=== PATIENT | female | born 1945 | race Caucasian/White ===

== ENCOUNTER 2019-11-21 08:14 | Day surgery (SDC) | payer OTHER ==
[2019-11-19 13:17] LABS: Absolute Lymphocytes (CBC) 1.6 K/uL (0.7-4.9); Basophils % 1.2 % (0-1.3); Hematocrit 39.3 % (36.0-45.0); Lymphocytes % 18.9 % (15.3-44.8); MPV 8.1 fL (7.6-11.3)
--- OUTSIDE RECORDS SUMMARY | 2019-11-21 08:30 | XMS REPORT | Continuity of Care Document ---
:1945 Author Organization [facility] t Address [address] [place] [address] Dr. Col[address] [place] [address] Care Team Providers Name Role Phone Alok COLLAZO Primary Care Physician Bj COLLAZO Attending Clinician Yaya HINDS Attending Clinician Unavailable Soledad COLLAZO, M. 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 7-16 Me thodi athy athy 00:00: st associated associated 00 with type with type 2 diabetes 2 diabetes mellitus mellitus Lumbar Lumbar Disease Active [place] radiculopa radiculopa 7-06 Me thodi thy thy 00:00: st 00 Type 2 Type 2 Disease Active [place] diabetes diabetes 7-06 Method i mellitus mellitus 00:00: st without without 00 complicati complicati on, on, without without long-term long-term current current use of use of insulin insulin Obesity Obesity Disease Active [place] (BMI (BMI 09-21 Methodi 30.0-34.9) 30.0-34.9) 00:00: st 00 Aortic Aortic Disease Active [place] aneurysm aneurysm 09-21 Method i without without 00:00: st rupture rupture 00 Allergies, Adverse Reactions, Alerts Allergy Allergy Status Severity Reaction(s) Onset Inactive Treating Comm ents Source Name Type Date Date Clinician Mario Vital Active Rash 2011-03 [place] line ty to 0-01 [facility] adverse 00:00: st reaction 00 s to drug Family History Family Member Diagnosis Comments Start Date Stop Date Source Natural father Diabetes [place] Me thodist Natural father Heart disease [place] Hoahaoism Natural father Hypertension [place] [facility]aoism Natural mother Heart disease [place] [facility]aoism Natural mother Hypertension [place] Ho[facility]aoism Natural mother Migraines [facility] thodist Natural mother Thyroid disease [place] Social History Social Habit Start Date Stop Date Quantity Comments Source History [facility] Meth odist Alcohol Std Drinks History [facility] Meth odist Alcohol Binge Sex Assigned At [facility] ethodist Alcohol intake 2019-09-22 2019-09-22 Lifetime [facility] thodist 00:00:00 00:00:00 non-drinker (finding) History [facility] 2019-09-22 2019-09-22 1 [place] Meth odist Alcohol Frequency 00:00:00 00:00:00 Smoking Status Start Date Stop Date Source Never smoker [place] Methodis t Medications Ordered Filled Start Stop Current Ordering Indication Dosage Frequency Signature Comments Components Source Medication Medication Date Date Medication? Clinician (SIG) Name Name multivitami Yes 1{tbl} QD Take 1 [place] n - tablet by [facility] (THERAGRAN) 11:22: mouth st tablet 22 daily. UBIQUINOL, 2020-0 Yes daily. [place] BULK, MISC 09-21 Methodi 11:22: st 22 C,E,ZINC,CO 2019-0 Yes Take by [place] st[place] PPER -06 mouth Methodi 24-OM3-LUT- 11:22: daily. st SHAYNA ORAL 21 garlic 1 mg 2019- Yes 2{tbl} Take 2 [place] capsule - tablets by Method i 11:22: mouth st 21 daily. vit 2019-0 Yes Take by [place] C/E/Zn/arlyn 7-06 mouth Methodi r/lutein/ze 11:22: daily. st axan 21 (PRESERVISI ON AREDS-2 ORAL) lutein 20 2020-0 Yes Take by [place] mg tablet 7-06 mouth Methodi 11:22: daily. st 21 pumpkin 2020-0 Yes Take by [place] seed/soy 7-06 mouth Methodi germ/Cissus 11:22: daily. st (PUMPKIN 21 SEED-SOYBEA N OIL-CISS ORAL) calcium 2020-0 Yes Take by [place] polycarboph 7-06 mouth Methodi il 11:22: daily. st (FIBER-CAPS 20 , CA POLYCARBOPH IL, ORAL) carvediloL 2020-0 Yes 25mg Q.5D Take 25 mg [place] (COREG) 25 7-06 by mouth 2 Met hodi MG tablet 10:43: (two) st 54 times a day with meals. furosemide 2020-0 Yes 40mg Take 40 mg [place] (LASIX) 40 7-06 by mouth Metho di mg tablet 10:43: daily. st 54 gabapentin 2020-0 Yes 300mg Take 300 [place] (NEURONTIN) 7-06 mg by Methodi 300 mg 10:43: mouth as st capsule 54 needed. rosuvastati 2020-0 Yes 10mg QD Take 10 mg [place] n (CRESTOR) 7-06 by mouth Meth moon 10 mg 10:43: daily. st tablet 54 potassium 2020-0 Yes 20meq Take 20 [place] chloride 7-06 mEq by [facility] (KLOR-CON) 10:43: mouth st 20 mEq 54 once. packet levothyroxi 2016-03 Yes daily. [place] ne 0-04 [facility] (SYNTHROID) 00:00: st 88 mcg 00 tablet losartan 2017- Yes daily. [place] (COZAAR) 919 [facility] 100 MG 00:00: st tablet 00 glimepiride 2017- Yes daily. [place] (AMARYL) 2 9-07 [facility] MG tablet 00:00: st 00 metFORMIN 2017-0 Yes Q.5D 2 (two) [place] (GLUCOPHAGE 8-23 times a Metho di ) 500 mg 00:00: day. st tablet 00 amLODIPine 2015-03 Yes daily. [place] (NORVASC) 5 2-05 Method[facility] mg tablet 00:00: st 00 Vital Signs Vital Name Observation Time Observation Value Comments Source Systolic blood 2019-10-02 09:24:00 155 mm[Hg] Michael Shafer pressure Diastolic blood 2019-10-02 09:24:00 84 mm[Hg] [place] Hoahaoism pressure Heart rate 2019-10-02 09:24:00 50 /min Bud Shafer Body height 2019-09-22 10:43:00 165.1 cm Bud Shafer Body weight 2019-09-22 10:43:00 92.534 kg Bud Shafer BMI 2019-09-22 10:43:00 33.95 kg/m2 Bud Shafer Procedures Procedure Date / Time Performed Performing Clinician Eron dsouza T4, FREE 2019-09-24 09:50:00 Judi Lorenzo Meth odsari THYROID STIMULATING 2019-09-24 09:50:00 Judi Lorenzo HORMONE VITAMIN B1 LEVEL, WHOLE 2019-09-24 09:50:00 Judi Lorenzo BLOOD VITAMIN B12 LEVEL 2019-09-24 09:50:00 Judi Lorenzo Me thodist RHEUMATOID FACTOR 2019-09-24 09:50:00 Judi Lorenzo Sc thodi DOMENIC SCREEN W IFA W REFLEX 2019-09-24 09:50:00 Judi Lorenzo TO TITER COMPREHENSIVE METABOLIC 2019-09-24 09:50:00 Judi Lorenzo PANEL FOLATE LEVEL 2019-09-24 09:50:00 Judi Lorenzo IMMUNOFIXATION, SERUM 2019-09-24 09:50:00 Judi Lorenzo NM SPECT BONE SCAN 2019-09-17 13:08:34 Denny Rowe NM BONE SCAN WHOLE BODY 2019-09-17 12:51:20 Denny Rowe XR LUMBAR SPINE COMPLETE 2019-09-17 11:06:24 Denny Rowe W BENDING MRI THORACIC SPINE WO 2019-09-17 10:48:32 Denny Rowe CONTRAST MRI CERVICAL SPINE WO 2019-09-17 10:37:49 [employer], Denny M. [place] [facility] CONTRAST Plan of Care Planned Activity Planned Date Details Comments Source Future Scheduled 2019-12-18 INFLUENZA VACCINE [place] [facility] Test 00:00:00 [code = INFLUENZA VACCINE] Future Scheduled 2008-10-10 65+ PNEUMOCOCCAL [place] [facility]aoism Test 00:00:00 VACCINE (1 of 2 - PCV13) [code = 65+ PNEUMOCOCCAL VACCINE (1 of 2 - PCV13)] Future Scheduled 1993-10-10 COLONOSCOPY SCREENING [place] [facility]ism Test 00:00:00 [code = COLONOSCOPY SCREENING] Future Scheduled 1993-10-10 SHINGLES VACCINES (#1) [place] [facility] Test 00:00:00 [code = SHINGLES VACCINES (#1)] Future Scheduled 1953-10-10 DIABETIC FOOT EXAM [place] [facility] Test 00:00:00 [code = DIABETIC FOOT EXAM] Future Scheduled 1953-10-10 URINE MICROALBUMIN [place] [facility]ism Test 00:00:00 [code = URINE MICROALBUMIN] Future Scheduled 1943 DIABETIC RETINAL EYE [place] Hoahaoism Test 00:00:00 EXAM [code = DIABETIC RETINAL EYE EXAM] Encounters Start End Encounter Admission Attending Care Care Encounter Source Date/Time Date/Time Type Type Clinicians Facility Department ID 2019-10-02 2019-10-02 [facility] [id number] [place] 00:00:00 00:00:00 JUDI 074 Method i 2019-09-22 2019-09-22 Outpatient [facility] [id number] 1910 [place] 00:00:00 00:00:00 JUDI 611 Method i 2019-09-17 2019-09-17 [facility] [id number] [place] 00:00:00 00:00:00 DENNY 473 Method i 2019-09-17 2019-09-17 [facility] [id number] [place] 00:00:00 00:00:00 DENNY 475 Method i 2019-09-17 2019-09-17 [facility] [id number] [place] 00:00:00 00:00:00 DENNY 471 Method i 2019-09-17 2019-09-17 [facility] [id number] [place] 00:00:00 00:00:00 DENNY 477 Method i 2019-09-17 2019-09-17 [facility] [id number] [place] 00:00:00 00:00:00 DENNY Mills2 Method i 2019-09-17 2019-09-17 Outpatient [facility] [id number] [place] 00:00:00 00:00:00 DENNY 474 Method i 2019-09-17 2019-09-17 Outpatient [facility] [id number] [place] 00:00:00 00:00:00 DENNY Remy Method i 2019-09-15 2019-09-15 Office Susannah [facility] [id number] 14:51:01 15:27:13 Visit [facility] [id number] Surgical [id number] Specialti [id number] [place] Results Test Description Test Time Test Comments Results Result Comments Source Comprehensive metabolic panel 2019-09-28 00:58:00 Test Item Value Reference Range Interpretation Comme nts Glucose (test code = 122 mg/dL 65-99 H Fasting 2345-7) reference inter santo For someone without known diabetes, a glu cose valuebetween 10 0 and 125 mg/dL is consis tent withprediabetes and should be confi rmed with afollow-up test . BUN (test code = 17 mg/dL 10-104-0) Creatinine (test code = 0.76 mg/dL 0.6-0.93 For patients >49 years of 2160-0) age, the refere nce limitfor Creati nine is approximately 1 3% higher for peopleident ified as -Selina n. EGFR Non-Afr. Sammarinese 77 > OR = 60 (test code = 2775) mL/min/1.73m2 EGFR 89 > OR = 60 (test code = 90398-5) mL/min/1.73m2 BUN/creatinine ratio NOT APPLICABLE (calc) (test code = 3097-3) Sodium (test code = 144 mmol/L 374-999 4333-2) Potassium (test code = 3.8 mmol/L 3.5-5.3 2823-3) Chloride (test code = 104 mmol/L 98-110 2074-0) CO2 (test code = 32 mmol/L 20-32 2027-9) Calcium (test code = 9.8 mg/dL 8.6-10.4 56718-4) Protein (test code = 7.0 g/dL 6.1-8.1 2885-2) Albumin, S (test code = 4.3 g/dL 3.6-5.1 1751-7) Globulin, total (test 2.7 1.9- 3.7 g/dL code = 73293-1) (calc) Albumin/globulin ratio 1.6 1.0- 2.5 (test code = 1759-0) (calc) Total bilirubin (test 0.5 mg/dL 0.2-1.2 code = 1975-2) Alkaline phosphatase 54 U/L 37-153 (test code = 6768-6) AST (test code = 22 U/L 10-35 1919-8) ALT (test code = 25 U/L 09-14-6) RAC (test code = RAC) Performing Organization Information: Site ID: JENNIFER Name: [facility] Address: [address] [place] [phone] Director: Valdo Owens Lab Interpretation Abnormal (test code = 95892-2) [place] MethodistVitamin B12 [id number] 00:58:00 Test Item Value Reference Range Interpretation Comments Vitamin B12 (test 494 pg/mL 200-1100 code = 2132-9) RAC (test code = Performing Organization RAC) Information: Site ID: JI [facility]: [facility] Address: [address] [place] [phone] Director: Valdo Owens [place] MethodistFolate [id number] 00:58:00 Test Item Value Reference Range Interpretation Comments Folate (test 21.0 ng/mL code = 2284-8) Refer ence Range Lo w: <3.4 Borderline: 3.4-5.4 Normal: >5.4 RAC (test code Performing = RAC) Organization Information: Site ID: JI Name: [facility] Address: [address] [place] [phone] Director: Valdo Owens [place] MethodistT4, [id number] 00:58:00 Test Item Value Reference Range Interpretation Comments T4, free (test code 1.4 ng/dL 0.8-1.8 = 3024-7) RAC (test code = Performing Organization RAC) Information: Site ID: [facility] Name: [facility] Address: [address] [place] [phone] Director: Valdo Owens [place] MethodistThyroid stimulating [id number] 00:58:00 Test Item Value Reference Range Interpretation Comments TSH (test code = 2.96 0.40- 4.50 mIU/L 3016-3) RAC (test code = Performing Organization RAC) Information: Site ID: [facility] Name: [facility] Address: [address] [place] [phone] Director: Valdo Owens [place] MethodistRheumatoid [id number] 00:58:00 Test Item Value Reference Range Interpretation Comments Rheumatoid factor <14 <14 IU/mL (test code = 95360-5) RAC (test code = RAC) Performing Organization Information: Site ID: [facility] Name: [facility] Address: [address] [place] [phone] Director: Valdo Owens [place] KwabenaistVitamin B1 level, whole [id number] 00:58:00 Test Item Value Reference Interpretation Comments Range Vitamin B1, whole 243 nmol/L 78-185 H Vitamin blood (test code = supplemen tation 74378-0) within 24 hours prior toblood d raw may affect the accuracy of res ults. This test was developed and i ts analytical performance characteristics have been determined by [employer]. It has not been cleared or appr lenin by theFDA. This assay has been validated pursu ant to the CLIA regulations and is used for clinic al purposes. RAC (test code = Performing RAC) Organization Information: Site ID: SLI Name: [facility] Address: [address] [place] [address] Director: Florentino Fu M.D., Ph.D Lab Interpretation Abnormal (test code = 82529-5) [place] MethodistANA SCREEN W IFA W REFLEX TO [id number] 00:58:00 Test Item Value Reference Range Interpretation Comments DOMENIC screen NEGATIVE NEGATIVE DOMENIC IFA is a fi rst line (test code = screen for dete cting 46421-2) thepresence of up to approximately 1 50 autoantibodies invarious autoimmune dise ases. A negative DOMENIC IF A resultsuggests an DOMENIC-associated autoimmune disease is notp resent at this time, but is not definitive. If thereis high clinical s uspicion for Sjogren's syndrome,testin g for anti-SS-A/Ro an tibody should be considered.Anti -Elena-1 antibody should be considered for clinicallysuspe cted inflammatory my opathies. AC-0: Negative International C onsensus on DOMENIC Patterns(https: //doi.org/ 10.1515/ccl-20 18-0052) For additional information, pl ease refer tohttp://educat ion.DraftMix/ faq/VTX871 (This link is b eing provided for informational/e ducational purposes only.) RAC (test Performing code = RAC) Organization Information: Site ID: IG [facility]: [facility] Address: [address] [place] [phone] Director: Dr. Valdo Farrell MethodistImmunofixation, [id number] 00:58:00InterpretationComment: Normal pattern. No monoclonal proteins detected. Ology MediaSHARI II Performing Organization Information: Site ID: IG Name: [facility] Address: [address] [place] [phone] Director: Dr. Valdo Lyon MethodsariMD Spect Bone [id number] 13:48:36Hm Interface, Radiology Results - 09/17/2019 1:51 PM CDTPROCEDURE: NM SPECT BONE SCANINDICATION: Postlaminectomy syndrome. COMPARISON: Same day cervical/thoracic spine MRI and lumbar spine radiographs. TECHNIQUE: The patient was injected with 25 millicuries of neahekrgno-53q-NKY intravenously, followed 3 hours later by whole-body scanning in the anterior and posterior projections. SPECT imaging of the thoracolumbar spine was obtained. FINDINGS: Mild increased uptake L1-2 right facet joint. Physiological renal excretion. Postoperative uptake in the lower lumbar spine. DJD in the shoulders and feet. IMPRESSION: Degenerative and postoperative changes in the lumbar spine, without evidence for hardware complication.[id number] and approved by residential real estate agent/fellow: Alba Meeks, Des Levy MD, personally reviewed the images and resident's/fellow's findings and agree with the final report.Bud ShaferNM Bone Scan Whole [id number] 13:31:14Hm Interface, Radiology Results 09/17/2019 1:34 PM CDTPROCEDURE: NM BONE SCAN WHOLE BODYINDICATION: Postlaminectomy syndrome. COMPARISON: Same day cervical/thoracic spine MRI and lumbar spine radiographs. TECHNIQUE: The patient was injected with 25 millicuries of jmmjoioiox-26q-PNU intravenously, followed 3 hours later by whole-body scanning in the anterior and posterior projections. S PECT imaging of the thoracolumbar spine was obtained. FINDINGS: Mild increased uptake L1-2 right facet joint. Physiological renal excretion. Postoperative uptake in the lower lumbar spine. DJD in the shoulders and feet. IMPRESSION: Degenerative and postoperative changes in the lumbar spine, without evidence for hardware complication.[id number] and approved by residential real estate agent/fellow: Alba Meeks, Des Levy MD, personally reviewed the images and resident's/fellow's findings and agree with the final report.Bud Guido Lumbar Spine Complete W Flex and [id number] 13:15:24Hm Interface, Radiology Results 09/17/2019 1:18 PM CDTEXAMINATION: Lateral neutral, flexion-extension views; AP and oblique radiographs of the lumbar spine in the standing position.CLINICALHISTORY: M96.1 Postlaminectomy syndrome not elsewhere classified, G95.9 Disease of spinal cord unspecified, POST LAMINECTOMY SYNDROMECOMPARISON: NoneFINDINGS:There is anterior fusion at L5-S1 with cage device in place. There is diffuse decreased bone density. There is severe disc space narrowing atL4-5 and L3-4. Endplate overlap obscures vertebral body and disc space height in the upper lumbar and lower thoracic region. There are a few small ventral osteophytes. There are lateral osteophytes more prominent on the right at L1-2; left at L3-4 and right greater than left at L4-5. There is severe left disc space narrowing at L3-4 with mild right lateral listhesis. There is greater left disc space narrowing at L2-3. There is left lateral listhesis at L1-2. There are multilevel ventrolateral osteophytes in the lower thoracic region, possibly with some right lateral bone bridging. There is calcification density in the T11-12 disc. The mid to upper lumbar spine and lower thoracic spine are angled towards the left. There is vacuum density in the L4-5, L3-4 and L1-2 discs, seen best on the oblique views.There are degenerative changes of the sacroiliac joints. Bowel gas obscures detail for laminectomy. There may be laminectomy at the L5 level. There is calcification of the land of the arteries.There is no significant change in alignment with flexion versus extension.IMPRESSION:Degenerative changes in the spine and sacroiliac joint regions.[facility]-[id number] MethodistMRI Thoracic Spine Wo [id number] 12:16:29Hm Interface, Radiology Results 09/17/2019 12:19 PM CDTEXAMINATION: MRI THORACIC SPINE WO CONTRASTCLINICAL HISTORY: M96.1 Postlaminectomy syndrome not elsewhere classified, G95.9 Disease of spinal cord unspecified, POST LAMINECTOMY SYNDROMECOMPARISON: None.TECHNIQUE:Multiplanar MRI imaging without IV Gadolinium was performed.FINDINGS:There is normal thoracic kyphosis and alignment. Vertebral bodies are preserved. Bone marrow is unremarkable with no evidence of acute fracture or suspicious marrow-replacing lesion. Intervertebral disc spaces are relatively preserved. The spinal cord is normal in signal and configuration. There is no significant posterior disc pathology, spinal canal or neural foraminal stenosis.Visualized paraspinal soft tissues are unremarkable.IMPRESSION: Unremarkable thoracic spinal MRI with no significant spinal canal or neural foraminal stenosis.[facility]-[id number] MethodistMRI Cervical Spine Wo [id number] 10:46:13Hm Interface, Radiology Results 09/17/2019 10:49 AM CDTEXAMINATION: MRI CERVICAL SPINE WO CONTRASTCLINICAL HISTORY: M96.1 Postlaminectomy syndrome not elsewhere classified, G95.9 Disease of spinal cord unspecified, POST LAMINECTOMY SYDROMECOMPARISON: None.FINDINGS: Noncontrast MRI of the cervical spine is interpreted.Upper thoracic kyphosis is exaggerated and there is anterior tilting of the cervical spine.Cervical cord is normal in volume and signal intensity.Bone marrow signal within normal limits.C2-3: Unremarkable.C3-4: Mild disc degenerative changes. Minimal canal narrowing.C4-5: Moderate disc degenerative changes. Slight grade 1 anterolisthesis. Minimal dorsal endplate spurring. Mild ligamentum flavum redundancy. Mild canal stenosis.C5-6: Moderate disc degenerative changes. Minimal disc bulge. Minimal canal narrowing.C6-7: Moderate disc degenerative changes.C7-T1: Mild disc degenerative changes.The paraspinous soft tissues are unremarkable.IMPRESSION: Tyot-mb-hfqiuuba cervical spondylosis without significant canal or foraminal stenosis.[id number] Bud Shafer
--- OUTSIDE RECORDS SUMMARY | 2019-11-21 08:30 | XMS REPORT | Clinical Summary ---
:1945 Author Organization [facility] Address [address] [place] [address] Care Team Providers Name Role Phone MD Alok Primary Care Provider Allergies Active Allergy Reactions Severity Noted Date Comments Tetracycline Rash Low 12/18/2011 Medications Medication Sig Dispensed Refills Start Date End Date Status levothyroxine daily. 0 12/20/2016 Activ e (SYNTHROID) 88 mcg tablet carvediloL (COREG) 25 Take 25 mg by 0 Active MG tablet mouth 2 (two) times a day with meals. losartan (COZAAR) 100 daily. 0 12/05/2016 Active MG tablet amLODIPine (NORVASC) 5 daily. 0 02/21/2016 Active mg tablet furosemide (LASIX) 40 Take 40 mg by 0 Active mg tablet mouth daily. metFORMIN (GLUCOPHAGE) 2 (two) times a 0 11/08/2016 Active 500 mg tablet day. glimepiride (AMARYL) 2 daily. 0 11/23/2016 Active MG tablet gabapentin (NEURONTIN) Take 300 mg by 0 Active 300 mg capsule mouth as needed. rosuvastatin (CRESTOR) Take 10 mg by 0 Active 10 mg tablet mouth daily. potassium chloride Take 20 mEq by 0 Active (KLOR-CON) 20 mEq mouth once. packet calcium polycarbophil Take by mouth 0 Active (FIBER-CAPS, [place] daily. POLYCARBOPHIL, ORAL) C,E,ZINC,COPPER Take by mouth 0 Active 19-VP2-TWX-SHAYNA ORAL daily. garlic 1 mg capsule Take 2 tablets by 0 Active mouth daily. vit Take by mouth 0 Active C/E/Zn/coppr/lutein/shayna daily. lily (PRESERVISION AREDS-2 ORAL) lutein 20 mg tablet Take by mouth 0 Active daily. pumpkin seed/soy Take by mouth 0 Active germ/Cissus (PUMPKIN daily. SEED-SOYBEAN OIL-CISS ORAL) multivitamin Take 1 tablet by 0 Active (THERAGRAN) tablet mouth daily. UBIQUINOL, BULK, MISC daily. 0 Active Active Problems Problem Noted Date Diabetic polyneuropathy associated with type 2 diabete s mellitus 10/02/2019 Lumbar radiculopathy 09/22/2019 Type 2 diabetes mellitus without complication, without long-term current 09/22/2019 use of insulin Obesity (BMI 30.0-34.9) 09/22/2019 Aortic aneurysm without rupture 09/22/2019 Encounters Date Type Specialty Care Team Description 10/02/2019 Procedure visit Neurology Judi rAias MD Diabe tic polyneuropathy associated with type 2 diabetes mellitus (HCC) (Primary Dx); Lumbar radiculo shakeel 10/02/2019 Orders Only Neurology Nidhi Javier, Lumbar rad iculopathy; MA Idiopathic dorian pheral neuropathy 10/02/2019 Travel 09/22/2019 Office Visit Neurology Judi Arias MD Lumbar r adiculopathy (Primary Dx); Idiopathic dorian pheral neuropathy; Type 2 diabetes mellitus without complication, without long-term current use of insulin (HCC); Obesity (BMI 30 .0-34.9); Aortic aneurysm without rupture, unspecified portion of aorta ([facility]) 09/22/2019 Travel 09/17/2019 Hospital Encounter Radiology Denny Rowe MD 09/17/2019 Hospital Encounter Radiology Denny Rowe MD 09/17/2019 Hospital Encounter Radiology Denny Rowe Post laminectomy syndrome, not elsewhere classified; MD Andrade Myelopathy ([facility] ) 09/17/2019 Hospital Encounter Radiology Denny Rowe Post laminectomy syndrome, not elsewhere classified; MD Andrade Myelopathy ([facility] ) 09/17/2019 Hospital Encounter Radiology Denny Rowe Post laminectomy syndrome, not elsewhere classified; MD Andrade Myelopathy ([facility] ) 09/17/2019 Hospital Encounter Radiology Denny Rowe Post laminectomy syndrome, not elsewhere classified; MD Andrade Myelopathy ([facility] ) 09/17/2019 Hospital Encounter Radiology Denny Rowe Post laminectomy syndrome, not elsewhere classified; MD Andrade Myelopathy ([facility] ) 09/17/2019 Travel 09/05/2019 Travel 09/04/2019 Transcribe Orders Access Soledad Denny Postcourtney aminectomy syndrome, not elsewhere classified (Primary Dx); MD Andrade Myelopathy (HCC ) after 11/20/2018 Family History Medical History Relation Name Comments Diabetes Father Heart disease Father Hypertension Father Heart disease Mother Hypertension Mother Migraines Mother Thyroid disease Mother Relation Name Status Comments Father (Age 78) Mother (Age 75) Social History Tobacco Use Types Packs/Day Years Used Date Never Smoker Smokeless Tobacco: Never Used Alcohol Use Drinks/Week oz/Week Comments Never Alcohol Habits Answer Date Recorded How often do you have a drink containing alcohol? Never 09/22/2019 How many drinks containing alcohol do you have on a typical Not asked day when you are drinking? How often do you have six or more drinks on one occasion? No t asked Sex Assigned at Date Recorded Not on file Job Start Date Occupation Industry Not on file Not on file Not on file Travel History Travel Start Travel End No recent travel history available. Last Filed Vital Signs Vital Sign Reading Time Taken Comments Blood Pressure 155/84 10/02/2019 9:24 AM CDT Pulse 50 10/02/2019 9:24 AM CDT Temperature - - Respiratory Rate - - Oxygen Saturation - - Inhaled Oxygen Concentration - - Weight 92.5 kg (204 lb) 09/22/2019 10:43 AM CDT Height 165.1 cm (5' 5") 09/22/2019 10:43 AM CDT Body Mass Index 33.95 09/22/2019 10:43 AM CDT Plan of Treatment Health Maintenance Due Date Last Done Comments DIABETIC RETINAL EYE EXAM 1945 DIABETIC FOOT EXAM 10/10/1953 URINE MICROALBUMIN 10/10/1953 COLONOSCOPY SCREENING 10/10/1993 SHINGLES VACCINES (#1) 10/10/1993 65+ PNEUMOCOCCAL VACCINE (1 of 2 - PCV13) 10/10/2008 INFLUENZA VACCINE 12/18/2019 Procedures Procedure Name Priority Date/Time Associated Diagnosis Comme nts IMMUNOFIXATION, SERUM Routine 09/24/2019 9:50 Idiopathic dorian pheral Results for this AM CDT neuropathy procedure are i n the results section. FOLATE LEVEL Routine 09/24/2019 9:50 Idiopathic peripheral Re sults for this AM CDT neuropathy procedure are i n the results section. COMPREHENSIVE Routine 09/24/2019 9:50 Idiopathic peripheral R esults for this METABOLIC PANEL AM CDT neuropathy procedure ar e in the results section. DOMENIC SCREEN W IFA W Routine 09/24/2019 9:50 Idiopathic periphe ral Results for this REFLEX TO TITER AM CDT neuropathy procedure ar e in the results section. RHEUMATOID FACTOR Routine 09/24/2019 9:50 Idiopathic peripher al Results for this AM CDT neuropathy procedure are i n the results section. VITAMIN B12 LEVEL Routine 09/24/2019 9:50 Idiopathic peripher al Results for this AM CDT neuropathy procedure are i n the results section. VITAMIN B1 LEVEL, Routine 09/24/2019 9:50 Idiopathic peripher al Results for this WHOLE BLOOD AM CDT neuropathy procedure are i n the results section. THYROID STIMULATING Routine 09/24/2019 9:50 Idiopathic periph eral Results for this HORMONE AM CDT neuropathy procedure are i n the results section. T4, FREE Routine 09/24/2019 9:50 Idiopathic peripheral Re sults for this AM CDT neuropathy procedure are i n the results section. NM SPECT BONE SCAN Routine 09/17/2019 1:08 Postlaminectomy Re sults for this PM CDT syndrome, not procedure are in elsewhere classi fied the results Myelopathy (HCC) section. NM BONE SCAN WHOLE Routine 09/17/2019 12:51 Postlaminectomy Re sults for this BODY PM CDT syndrome, not procedure are in elsewhere classi fied the results Myelopathy (HCC) section. XR LUMBAR SPINE Routine 09/17/2019 11:06 Postlaminectomy Resul ts for this COMPLETE W BENDING AM CDT syndrome, not procedur e are in elsewhere classi fied the results Myelopathy (HCC) section. MRI THORACIC SPINE WO Routine 09/17/2019 10:48 Postlaminectomy Results for this CONTRAST AM CDT syndrome, not procedure are in elsewhere classi fied the results Myelopathy (HCC) section. MRI CERVICAL SPINE WO Routine 09/17/2019 10:37 Postlaminectomy Results for this CONTRAST AM CDT syndrome, not procedure are in elsewhere classi fied the results Myelopathy (HCC) section. after 11/20/2018 Results DOMENIC SCREEN W IFA W REFLEX TO TITER (09/24/2019 9:50 AM CDT) Pathologist Sig nature DOMENIC screen NEGATIVE NEGATIVE [facility] Comment: [facility] DOMENIC IFA is a first line screen for detecting the II presence of up to approximately 150 autoantibodies in various autoimmune diseases. A negative DOMENIC IFA result suggests an DOMENIC-associated autoimmune disease is not present at this time, but is not definitive. If there is high clinical suspicion for Sjogren's syndrome, testing for anti-SS-A/Ro antibody should be considered . Anti-Elena-1 antibody should be considered for clinically suspected inflammatory myopathies. AC-0: Negative International Consensus on DOMENIC Patterns (https://doi.org/10.1515/scop-6043-6450) For additional information, please refer to http://education.ReaLync/faq/SIC337 (This link is being provided for informational/ educational purposes only.) Specimen Blood Resulting Agency Comment Performing Organization Information: Site ID: [id number] Name: [facility] Address: [address] [place] [phone] Director: Dr. Valdo dsouza Performing Organization Address City/[facility]/Zipcode Phone Number [facility] [place] [address] Vitamin B1 level, whole blood (09/24/2019 9:50 AM CDT) Pathologist [facility] Vitamin B1, 243 (H) 78 - 185 [facility] whole blood Comment: nmol/L [facility] [place] Vitamin supplementation within 24 hours prior to blood draw may affect the accuracy of results. This test was developed and its analytical performance characteristics have been determined by [facility]. It has not been cleared or approved by [facility] FDA. This assay has been validated pursuant to the CLI A regulations and is used for clinical purposes. Specimen Blood Resulting Agency Comment Performing Organization Information: Site ID: [id number] Name: [facility] Address: [address] [place] [address] Director: Florentino Fu M.D., Ph. D Performing Organization Address [facility] Phone Number [facility] [address] [place] [address] Rheumatoid factor (09/24/2019 9:50 AM CDT) Pathologist [facility] Rheumatoid factor <14 <14 IU/mL [facility] [place] Specimen Blood Resulting Agency Comment Performing Organization Information: Site ID: [id number] Name: [facility] Address: [address] [place] [phone] Director: Valdo Owens Performing Organization Address [facility] Phone Number [facility] [address] [address] Immunofixation, serum (09/24/2019 9:50 AM CDT) Pathologist Sig nature Interpretation [facility] Comment: [facility] II Normal pattern. No monoclonal proteins detected. Specimen Blood Resulting Agency Comment Performing Organization Information: Site ID: [id number] Name: [facility] Address: [address] [place] [phone] Director: Dr. Valdo dsouza Performing Organization Address [facility] Phone Number [facility] [place] [address] [phone] Thyroid stimulating hormone (09/24/2019 9:50 AM CDT) Pathologist Sig nature TSH 2.96 0.40 - 4.50 mIU/L [facility] [place] Specimen Blood Resulting Agency Comment Performing Organization Information: Site ID: [id number] [facility]: [facility] Address: [address] [place] [phone] Director: Valdo Owens Performing Organization Address [facility] Number [facility] [address] [address] T4, free (09/24/2019 9:50 AM CDT) Pathologist Sig nature T4, free 1.4 0.8 - 1.8 ng/dL [facility] [place] Specimen Blood Resulting Agency Comment Performing Organization Information: Site ID: RGA Name: [facility] Address: [address] [place] [phone] Director: aVldo Owens Performing Organization Address [facility] Number [facility] [address] [address] Folate level (09/24/2019 9:50 AM CDT) Pathologist Sig nature Folate 21.0 ng/mL [facility] Comment: [place] Reference Rang e Low: <3.4 Borderline: 3.4-5.4 Normal: >5.4 Specimen Blood Resulting Agency Comment Performing Organization Information: Site ID: [id number] Name: [facility] Address: [address] [place] [phone] Director: Valdo Owens Performing Organization Address [facility] Hospitalcode Phone Number [facility] [place] [phone] Vitamin B12 level (09/24/2019 9:50 AM CDT) Pathologist [facility] Vitamin B12 494 200 - 1,100 pg/mL [facility] Specimen Blood Resulting Agency Comment Performing Organization Information: Site ID: RGA Name: [facility] Address: [address] [place] [phone] Director: Valdo Owens Performing Organization Address [facility] Hospitalcode [place] [address] Comprehensive metabolic panel (09/24/2019 9:50 AM CDT) Pathologist [facility] Glucose 122 (H) 65 - 99 [facility] Comment: mg/dL [place] Fasting reference interval For someone without known diabetes, a glucose value between 100 and 125 mg/dL is consistent with prediabetes and should be confirmed with a follow-up test. BUN 17 7 - 25 mg/dL [facility] [place] Creatinine 0.76 0.60 - 0.93 [facility] Comment: mg/dL [place] For patients >49 years of age, the reference limit for Creatinine is approximately 13% higher for people identified as -Iraqi. EGFR Non-Afr. 77 > OR = 60 [facility] Iraqi mL/min/1.73m [place] 2 EGFR 89 > OR = 60 [facility] Iraqi mL/min/1.73m [place] 2 BUN/creatinine NOT APPLICABLE 6 - 22 [facility] ratio (calc) [place] Sodium 144 135 - 146 [facility] mmol/L [place] Potassium 3.8 3.5 - 5.3 [facility] mmol/L [place] Chloride 104 98 - 110 [facility] mmol/L [place] CO2 32 20 - 32 [facility] mmol/L [place] Calcium 9.8 8.6 - 10.4 [facility] mg/dL [place] Protein 7.0 6.1 - 8.1 [facility] g/dL [place] Albumin, S 4.3 3.6 - 5.1 [facility] g/dL [place] Globulin, total 2.7 1.9 - 3.7 [facility] g/dL (calc) [place] Albumin/globulin 1.6 1.0 - 2.5 [facility] ratio (calc) [place] Total bilirubin 0.5 0.2 - 1.2 [facility] mg/dL [place] Alkaline 54 37 - 153 U/L [facility] phosphatase [place] AST 22 10 - 35 U/L [facility] [place] ALT 25 6 - 29 U/L [facility] [place] Specimen Blood Resulting Agency Comment Performing Organization Information: Site ID: RGA Name: [facility] Address: [address] [place] [phone] Director: Valdo Owens Performing Organization Address City/State/Zipcode Phone Number [facility] [address] [address] NM Spect Bone Scan (09/17/2019 1:08 PM CDT) Specimen Narrative Performed At PROCEDURE: NM SPECT BONE SCAN [facility] INDICATION: Postlaminectomy syndrome. COMPARISON: Same day cervical/thoracic spine MRI and lumbar spine radiographs. TECHNIQUE: The patient was injected with 25 millicurie s of [id number] intravenously, followed 3 hours lat er by whole-body scanning in the anterior and posterior projections. SPECT imaging of the thoracolumbar spine was obtained. FINDINGS: Mild increased uptake L1-2 right facet kennedi nt. Physiological renal excretion. Postoperative uptake in the lower l umbar spine. DJD in the shoulders and feet. IMPRESSION: Degenerative and postoperative changes in the lumbar s pine, without evidence for hardware complication. [id number] Dictated and approved by residential sales executive/fellow: Mazin Hui M.D. I, Des Levy MD, personally reviewed the images and resident's/fellow's findings and agree with the final report. Procedure Note Interface, Radiology Results Incoming - 09/17/2019 1:51 PM CDT PROCEDURE: NM SPECT BONE SCAN INDICATION: Postlaminectomy syndrome. COMPARISON: Same day cervical/thoracic spine MRI and lumbar spine radiographs. TECHNIQUE: The patient was injected with 25 millicuries of [id number] intravenously, followed 3 hours later by whole-body scanning in the anterior and posterior projections. SPECT imaging of the thoracolumbar spine was obtained. FINDINGS: Mild increased uptake L1-2 ri ght facet joint. Physiological renal excretion. Postoperative uptake in the lower lumbar spine. DJD in the shoulders and feet. IMPRESSION: Degenerative and postoperative changes i n the lumbar spine, without evidence for hardware complication. [id number] Dictated and approved by radiology resid ent/fellow: Julieta Hui M.D. I, Des Levy MD, personally review ed the images and resident's/fellow's findings and agree with the final report. Performing Organization Address City/State/Zipcode Phone Number [facility] [address] [place] [address] NM Bone Scan Whole Body (09/17/2019 12:51 PM CDT) Specimen Narrative Performed At PROCEDURE: NM BONE SCAN WHOLE BODY [facility] INDICATION: Postlaminectomy syndrome. COMPARISON: Same day cervical/thoracic spine MRI and lumbar spine radiographs. TECHNIQUE: The patient was injected with 25 millicurie s of [id number] intravenously, followed 3 hours lat er by whole-body scanning in the anterior and posterior projections. SPECT imaging of the thoracolumbar spine was obtained. FINDINGS: Mild increased uptake L1-2 right facet kennedi nt. Physiological renal excretion. Postoperative uptake in the lower l umbar spine. DJD in the shoulders and feet. IMPRESSION: Degenerative and postoperative changes in the lumbar s pine, without evidence for hardware complication. [id number] Dictated and approved by residential sales executive/fellow: Mazin Hui M.D. I, Des Levy MD, personally reviewed the images and resident's/fellow's findings and agree with the final report. Procedure Note Interface, Radiology Results Incoming - 09/17/2019 1:34 PM CDT PROCEDURE: NM BONE SCAN WHOLE BODY INDICATION: Postlaminectomy syndrome. COMPARISON: Same day cervical/thoracic spine MRI and lumbar spine radiographs. TECHNIQUE: The patient was injected with 25 millicuries of [id number] intravenously, followed 3 hours later by whole-body scanning in the anterior and posterior projections. SPECT imaging of the thoracolumbar spine was obtained. FINDINGS: Mild increased uptake L1-2 ri ght facet joint. Physiological renal excretion. Postoperative uptake in the lower lumbar spine. DJD in the shoulders and feet. IMPRESSION: Degenerative and postoperative changes i n the lumbar spine, without evidence for hardware complication. [id number] Dictated and approved by radiology resid ent/fellow: Julieta Hui M.D. I, Des Levy MD, personally review ed the images and resident's/fellow's findings and agree with the final report. Performing Organization Address City/State/Zipcode Phone Number [facility] [address] [place] [address] XR Lumbar Spine Complete W Flex and Ext (09/17/2019 11:06 AM CDT) Specimen Narrative Performed At EXAMINATION: Lateral neutral, flexion-extension views; AP and oblique [facility] radiographs of the lumbar spine in the s tanding position. CLINICAL HISTORY: M96.1 Postlaminectomy syndrome not elsewhere classified, G95.9 Disease of spinal cord unspecified , POST LAMINECTOMY SYNDROME COMPARISON: None FINDINGS: There is anterior fusion at L5-S1 with cage device in place. There is diffuse decreased bone density. There is severe disc s pace narrowing at L4-5 and L3-4. Endplate overlap obscures vertebral bod y and disc space height in the upper lumbar and lower thoracic region. There are a few small ventral osteoph ytes. There are lateral osteophytes more prominent on the right at L1- 2; left at L3-4 and right greater than left at L4-5. There is severe l eft disc space narrowing at L3-4 with mild right latera l listhesis. There is greater left disc space narrowing at L2-3. There is left lateral listhesis at L1-2. There are multilevel v entrolateral osteophytes in the lower thoracic region, possibly wit h some right lateral bone bridging. There is calcific ation density in the T11-12 disc. The mid to upper lumbar sp ine and lower thoracic spine are angled towards the left. There is v acuum density in the L4-5, L3-4 and L1-2 discs, seen best on the oblique views. There are degenerative changes of the sacroiliac joint s. Bowel gas obscures detail for laminectomy. There may be laminect yeny at the L5 level. There is calcification of the wal ls of the arteries. There is no significant change in alignment with flexi on versus extension. IMPRESSION: Degenerative changes in the spine and sa croiliac joint regions. [id number] Procedure Note Hm Interface, Radiology Results Incoming - 09/17/2019 1:18 PM CDT EXAMINATION: Lateral neutral, flexion-extension views; AP and oblique radiographs of the lumbar spine in the standing position. CLINICAL HISTORY: M96.1 Postlaminectomy syndrome not elsewhere classified, G95.9 Disease of spinal cord unspecified, POST LAMINECTOMY SYNDROME COMPARISON: None FINDINGS: There is anterior fusion at L5-S1 with c age device in place. There is diffuse decreased bone density. There is severe disc space narrowing at L4-5 and L3-4. Endplate overlap obscures vertebral body and disc space height in the upper lumbar and lower thoracic region. There are a few small v entral osteophytes. There are lateral osteophytes more prominent on the right at L1-2; left at L3-4 and right greater than left at L4-5. There is severe left disc space narrowing at L3-4 with mild right lateral listhesis. There is greater left disc sp chloe narrowing at L2-3. There is left lateral listhesis at L1-2. There are multilevel ventrolateral osteophytes in the lower thoracic region, possibly with some right lateral bone bridging. There is calcification density in the T11-12 disc. The mid to u pper lumbar spine and lower thoracic spine are angled towards the left. There is vacuum density in the L4-5, L3-4 and L1-2 discs, seen best on the oblique views. There are degenerative changes of the sa croiliac joints. Bowel gas obscures detail for laminectomy. There may be laminectomy at the L5 level. There is calcification of the land of the arteries. There is no significant change in alignm ent with flexion versus extension. IMPRESSION: Degenerative changes in the spine and sa croiliac joint regions. [id number] Performing Organization Address City/State/Zipcode Phone Number [facility] [address] [place] [address] MRI Thoracic Spine Wo Contrast (09/17/2019 10:48 AM CDT) Specimen Narrative Performed At EXAMINATION: MRI THORACIC SPINE WO CON TRAST [facility] CLINICAL HISTORY: M96.1 Postlaminectomy syndrome n ot elsewhere classified, G95.9 Disease of spinal cord unspecified , POST LAMINECTOMY SYNDROME COMPARISON: None. TECHNIQUE: Multiplanar MRI imaging without IV Brian olinium was performed. FINDINGS: There is normal thoracic kyphosis and alignment. Verte bral bodies are preserved. Bone marrow is unremarkable with no evidenc e of acute fracture or suspicious marrow-replacing lesion. Int ervertebral disc spaces are relatively preserved. The s juliane cord is normal in signal and configuration. There is no significant posterior disc pathology, spinal canal o r neural foraminal stenosis. Visualized paraspinal soft tissues are u nremarkable. IMPRESSION: Unremarkable thoracic spinal MRI with no significant s juliane canal or neural foraminal stenosis. [id number] Procedure Note Interface, Radiology Results Incoming - 09/17/2019 12:19 PM CDT EXAMINATION: MRI THORACIC SPINE WO CONTRAST CLINICAL HISTORY: M96.1 Postlaminectomy syndrome not elsewhere classified, G95.9 Disease of spinal cord unspecified, POST LAMINECTOMY SYNDROME COMPARISON: None. TECHNIQUE: Multiplanar MRI imaging without IV Gado linium was performed. FINDINGS: There is normal thoracic kyphosis and al ignment. Vertebral bodies are preserved. Bone marrow is unremarkable with no evidence of acute fracture or suspicious marrow-replacing lesion. Intervertebral disc spaces are relatively preserved. The spinal cord is normal in signal and configuration. There is no significant posterior disc pathology, spinal canal or neural foraminal stenosis. Visualized paraspinal soft tissues are u nremarkable. IMPRESSION: Unremarkable thoracic spinal MRI with no significant spinal canal or neural foraminal stenosis. [id number] Performing Organization Address City/State/Zipcode Phone Number [facility] [address] [place] [address] MRI Cervical Spine Wo Contrast (09/17/2019 10:37 AM CDT) Specimen Narrative Performed At EXAMINATION: MRI CERVICAL SPINE WO CON TRAST [facility] CLINICAL HISTORY: M96.1 Postlaminectomy syndrome n ot elsewhere classified, G95.9 Disease of spinal cord unspecified , POST LAMINECTOMY SYDROME COMPARISON: None. FINDINGS: Noncontrast MRI of the cervica l spine is interpreted. Upper thoracic kyphosis is exaggerated and there is an terior tilting of the cervical spine. Cervical cord is normal in volume and si gnal intensity. Bone marrow signal within normal limits. C2-3: Unremarkable. C3-4: Mild disc degenerative changes. Mi nimal canal narrowing. C4-5: Moderate disc degenerative changes. Slight grade 1 anterolisthesis. Minimal dorsal endplate spurring. Mil d ligamentum flavum redundancy. Mild canal stenosis. C5-6: Moderate disc degenerative changes. Minimal disc bulge. Minimal canal narrowing. C6-7: Moderate disc degenerative changes . C7-T1: Mild disc degenerative changes. The paraspinous soft tissues are unremar kable. IMPRESSION: Mumk-wu-psadgpqb cervical spondylosis with out significant canal or foraminal stenosis. [id number] Procedure Note Interface, Radiology Results 09/17/2019 10:49 AM CDT EXAMINATION: MRI CERVICAL SPINE WO CONTRAST CLINICAL HISTORY: M96.1 Postlaminectomy syndrome not elsewhere classified, G95.9 Disease of spinal cord unspecified, POST LAMINECTOMY SYDROME COMPARISON: None. FINDINGS: Noncontrast MRI of the cervica l spine is interpreted. Upper thoracic kyphosis is exaggerated a nd there is anterior tilting of the cervical spine. Cervical cord is normal in volume and si gnal intensity. Bone marrow signal within normal limits. C2-3: Unremarkable. C3-4: Mild disc degenerative changes. Mi nimal canal narrowing. C4-5: Moderate disc degenerative changes . Slight grade 1 anterolisthesis. Minimal dorsal endplate spurring. Mild ligamentum flavum redundancy. Mild canal stenosis. C5-6: Moderate disc degenerative changes . Minimal disc bulge. Minimal canal narrowing. C6-7: Moderate disc degenerative changes . C7-T1: Mild disc degenerative changes. The paraspinous soft tissues are unremar kable. IMPRESSION: Dxgk-uj-iksgnuwa cervical sp ondylosis without significant canal or foraminal stenosis. 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
--- OUTSIDE RECORDS SUMMARY | 2019-11-21 08:31 | XMS REPORT | Summary of Care ---
:1945 Author Organization [facility] Address [address] [place] [address] Care Team Providers Name Role Phone Veena Dickinson MD Primary Care Provider Reason for Referral Radiology Services (Routine) Status Reason Specialty Diagnoses / Referred By Referred To Procedures Contact Contact New Request Diagnostic Diagnoses Bilateral hip pain Kleber Davalos Radiology Procedures XR PELVIS <3 VW MD [place] [address] [place] [address] Reason for Visit Auth/Cert Status Reason Specialty Diagnoses / Procedures Referred By Marilou figueroa Referred To Contact Radiology [facility] X[facility] [address] [place] [address] Phone: Fax: Encounter Details Date Type Department Care Team Description 09/15/2019 Hospital Encounter [facility] Sera Davalos Arrived [facility] [address] [place] [address] [address] [phone] [place] [address] Allergies Active Allergy Reactions Severity Noted Date Comments Tetracycline Rash 03/02/2016 documented as of this encounter (statuses as of 09/16/2019) Medications Medication Sig Dispensed Refills Start Date End Date Status metoprolol succinate XL 0 01/28/2016 Active (TOPROL XL) 50 mg 24 hr tablet amLODIPine (NORVASC) 5 0 02/21/2016 Active mg tablet traMADOL (ULTRAM) 50 mg 0 02/14/2016 Active tablet levothyroxine 0 02/08/2016 Activ e (SYNTHROID) 100 mcg tablet NaCl 0.9% (NS) 0.9 % Infuse 20 mEq 0 Active SolP 100 mL with once now. potassium acetate 2 mEq/mL Soln 20 mEq furosemide (LASIX) 40 mg Take 40 mg by 0 Active tablet mouth every morning and evening. naproxen 375 mg EC Take 1 tablet by 60 tablet 1 12/14/2016 Active tablet mouth 2 (two) times daily with meals. gabapentin 600 mg tablet 0 12/10/2016 Active glimepiride 2 mg tablet 0 11/23/2016 Active metFORMIN 500 mg tablet 0 11/08/2016 Active losartan 100 mg tablet 0 12/05/2016 Active levothyroxine 88 mcg 0 12/20/2016 Active tablet traMADOL 50 mg tablet Take 1 tablet by 40 tablet 0 01/22/2018 Active mouth every 4 (four) hours as needed for Pain (scale 7-10). methylPREDNISolone Take 21 tablets 1 Each 0 02/06/2018 Active (MEDROL, LAMBERTO,) 4 mg by mouth tablets SEE-INSTRUCTIONS . follow package directions documented as of this encounter (statuses as of 09/16/2019) Active Problems Problem Noted Date Left shoulder pain 03/02/2016 documented as of this encounter (statuses as of 09/16/2019) Social History Tobacco Use Types Packs/Day Years Used Date Never Smoker Smokeless Tobacco: Never Used Alcohol Use Drinks/Week oz/Week Comments No 0 Standard drinks or equivalent 0.0 Sex Assigned at Date Recorded Not on file Job Start Date Occupation Industry Not on file Not on file Not on file Travel History Travel Start Travel End No recent travel history available. COVID-19 Exposure Response Date Recorded In the last month, have you been in contact with No / Unsure 09/15/2019 2:55 PM CDT someone who was confirmed or suspected to have Coronavirus / COVID-19? documented as of this encounter Last Filed Vital Signs Not on filedocumented in this encounter Plan of Treatment Health Maintenance Due Date Last Done Comments DTaP,Tdap,and Td Vaccines (1 - Tdap) 10[birth year]10/1956 Breast Cancer Screening (MAMMOGRAM) 1983 COLONOSCOPY 10/10/1993 Zoster Recombinant Vaccine (SHINGRIX) (1 of 2) 10/10/1993 Medicare Wellness Visit 10/10/2008 Osteoporosis Screening 10/10/2008 PNEUMOCOCCAL VACCINES 65+ (1 of 2 - PCV13) 10/10/2008 INFLUENZA VACCINE (Season Ended) 2019 Depression Screening 09/14/2020 09/15/2019 documented as of this encounter Procedures Procedure Name Priority Date/Time Associated Diagnosis Comme nts XR PELVIS <3 VW Routine 09/15/2019 2:42 PM Bilateral hip pain Results for this CDT procedure are i n the results section. documented in this encounter Results XR PELVIS <3 VW (09/15/2019 2:42 PM CDT) Specimen Impressions Performed At PACS/VR/DOSE No acute bony abnormality. Mild bilateral hip osteoarthrosis. Narrative Performed At EXAM: PACS/VR/DOSE XR PELVIS <3 VW HISTORY: Hip pain - AP Pelvis COMPARISON: None. FINDINGS: Degenerative and postsurgical changes ar e seen in the lumbar spine. Osteopenia is noted. Pelvic phleboliths are seen. Intramedullary nail traversing a healing intertrochanteric/s ubtrochanteric femur fracture is seen without hardware complication. Mild bilateral hip joint space narrowing is present with osteophytosis and subchondral sclerosis. Procedure Note [facility], [facility]iant Results Inft User - 2019 3:09 PM CDT EXAM: XR PELVIS <3 VW HISTORY: Hip pain - AP Pelvis COMPARISON: None. FINDINGS: Degenerative and postsurgical changes ar e seen in the lumbar spine. Osteopenia is noted. Pelvic phleboliths are seen. Intramedullary nail traversing a healing intertrochanteric/s ubtrochanteric femur fracture is seen without hardware complication. Mild bilateral hip joint space narrowing is present with osteophytosis and subchondral sclerosis. IMPRESSION No acute bony abnormality. Mild bilateral hip osteoarthrosis. Performing Organization Address City/State/Zipcode Phone Number PACS/VR/DOSE documented in this encounter Visit Diagnoses Diagnosis Bilateral hip pain Pain in joint, pelvic region and thigh documented in this encounter Insurance Payer Benefit Plan / Subscriber ID Effective Phone Address T ype Group Dates MEDICARE MEDICARE PART xxxxxxxxxxx 2008-Prese [phone] [address] Medicare A & B 82 [id number] [place] [address] [facility] [id number] 2015-Pres PPO ent [phone] [id number] (Work) documented as of this encounter
--- OUTSIDE RECORDS SUMMARY | 2019-11-21 08:31 | XMS REPORT | Summary of Care ---
:1945 Author Organization [facility] Address [address] [place] [address] Care Team Providers Name Role Phone Veena Dickinson MD Primary Care Provider Reason for Referral Radiology Services (Routine) Status Reason Specialty Diagnoses / Referred By Referred To Procedures Contact Contact New Request Diagnostic Diagnoses Bilateral hip pain Kleber Davalos Radiology Procedures XR PELVIS <3 ALAYNA Badillo MD [address] [place] [address] [place] [address] Reason for Visit Reason Comments Orders A/P Pelvis xray Encounter Details Date Type Department Care Team Description 09/15/2019 Telephone [facility] Orthopaedic Kleber Davalos (A/P Pelvis xray Surgery- Daija Badillo MD ) [address] [facility] [address] [place] [place] [address] [place] [address] [place], [place] [phone] [address] Allergies Active Allergy Reactions Severity Noted Date Comments Tetracycline Rash 03/02/2016 documented as of this encounter (statuses as of 09/15/2019) Medications Medication Sig Dispensed Refills Start Date [...] as of this encounter (statuses as of 09/15/2019) Active Problems Problem Noted Date Left shoulder pain 03/02/2016 documented as of this encounter (statuses as of 09/15/2019) Social History Tobacco Use Types Packs/Day Years Used Date Never Smoker Smokeless Tobacco: Never Used Alcohol Use Drinks/Week oz/Week Comments No 0 Standard drinks or equivalent 0.0 Sex Assigned at Date Recorded Not on file Job Start Date Occupation Industry Not on file Not on file Not on file Travel History Travel Start Travel End No recent travel history available. documented as of this encounter Last Filed Vital Signs Not on filedocumented in this encounter Plan of Treatment Date Type Specialty Care Team Description 09/15/2019 Office Visit Orthopedic Surgery Maryam Davalos MD [address] [phone] Name Type Priority Associated Diagnoses Order S chedule XR PELVIS <3 VW IMAGING Routine Bilateral hip pain Expect ed: 09/15/2019, Expires: 09/14/2020 Health Maintenance Due Date Last Done Comments DTaP,Tdap,and Td Vaccines (1 - Tdap) 10[birth year]10/1956 Depression Screening 1955 Breast Cancer Screening (MAMMOGRAM) 1983 COLONOSCOPY 10/10/1993 Zoster Recombinant Vaccine (SHINGRIX) (1 of 2) 10/10/1993 Medicare Wellness Visit 10/10/2008 Osteoporosis Screening 10/10/2008 PNEUMOCOCCAL VACCINES 65+ (1 of 2 - PCV13) 10/10/2008 INFLUENZA VACCINE (Season Ended) 2019 documented as of this encounter Results Not on filedocumented in this encounter Visit Diagnoses Diagnosis Bilateral hip pain - Primary Pain in joint, pelvic region and thigh documented in this encounter Insurance Payer Benefit Plan / Subscriber ID Effective Phone Address T ype Group Dates MEDICARE MEDICARE PART xxxxxxxxxxx 2008-[place]ian[place] [phone] [address] Medicare A & B nt 82 [id number] [place] [id number] [facility] [email or web address] [facility] [id number] 2015-Pres PPO ent documented as of this encounter
--- OUTSIDE RECORDS SUMMARY | 2019-11-21 08:31 | XMS REPORT | Summary of Care ---
:1945 Author Organization [facility] Address [address] [place] [address] Care Team Providers Name Role Phone Veena Dickinson MD Primary Care Provider Reason for Visit Reason Comments Hip Pain right 9/10 Knee Pain Auth/Cert Status Reason Specialty Diagnoses / Procedures Referred By Marilou figueroa Referred To Contact Radiology [facility] [address] [place] [address] Phone: Fax: Encounter Details Date Type Department Care Team Description 09/15/2019 Office Visit [facility] Kleber Davalos Lumbar radic ulopathy Orthopaedic Surgery- MD Aby (Primary Dx) [place] [id number] [facility] [place] [address] [place] [phone] Allergies Active Allergy Reactions Severity Noted Date Comments Tetracycline Rash 03/02/2016 documented as of this encounter (statuses as of 09/17/2019) Medications Medication Sig Dispensed Refills Start Date [...] as of this encounter (statuses as of 09/17/2019) Active Problems Problem Noted Date Left shoulder pain 03/02/2016 documented as of this encounter (statuses as of 09/17/2019) Social History Tobacco Use Types Packs/Day Years [...] of this encounter Last Filed Vital Signs Vital Sign Reading Time Taken Comments Blood Pressure 147/68 09/15/2019 2:59 PM CDT Pulse 57 09/15/2019 2:59 PM CDT Temperature 37 C (98.6 F) 09/15/2019 2:59 PM CDT Respiratory Rate - - Oxygen Saturation - - Inhaled Oxygen Concentration - - Weight - - Height - - Body Mass Index - - documented in this encounter Progress Notes Kleber Davalos MD - 09/15/2019 3:00 PM CDT Cc: Right Hip Pain Althea Bell is a 73 year old female. Patient reports she fell a day after Thanksgiving and has had pain since. S/P IM [place] 2009 / Previouscage fusion in by Dr. Fernández. Pain radiates down her leg. Hip Pain The incident occurred more than 1 week ago. The incident occurred at home. There was no injury mechanism. The pain is present in the left hip. The quality of the pain is described as aching and stabbing. The pain is at a severity of 7/10. The pain is moderate. The pain has been worsening since onset. Associated symptoms include an inability to bear weight. The symptoms are aggravated by movement and weight bearing. She has tried non-weight bearing and acetaminophen for the symptoms. The treatment provided no relief. Knee Pain Associated symptoms include an inability to bear weight. Allergies Althea is allergic to tetracycline. Medications Outpatient Medications Prior to Visit Medication Sig Dispense Refill methylPREDNISolone (MEDROL, LAMBERTO,) 4 mg tablets Take 21 tablets by mouth SEE- INSTRUCTIONS. followpackage directions 1 Each 0 traMADOL 50 mg tablet Take 1 tablet by mouth every 4 (four) hours as needed for Pain (scale 7-10). 40 tablet 0 gabapentin 600 mg tablet glimepiride 2 mg tablet levothyroxine 88 mcg tablet losartan 100 mg tablet metFORMIN 500 mg tablet naproxen 375 mg EC tablet Take 1 tablet by mouth 2 (two) times daily with meals. 60 tablet 1 amLODIPine (NORVASC) 5 mg tablet furosemide (LASIX) 40 mg tablet Take 40 mg by mouth every morning and evening. levothyroxine (SYNTHROID) 100 mcg tablet metoprolol succinate XL (TOPROL XL) 50 mg 24 hr tablet NaCl 0.9% (NS) 0.9 % SolP 100 mL with potassium acetate 2 mEq/mL Soln 20 mEq Infuse 20 mEq once now. traMADOL (ULTRAM) 50 mg tablet No facility-administered medications prior to visit. Histories Past Medical History: Diagnosis Date Diabetes mellitus Hypertension Left shoulder pain 03/02/2016 Thyroid disease Past Surgical History: Procedure Laterality Date FRACTURE SURGERY 2009 Right Femur SPINE SURGERY Fusion - 3 lamenectomy Social History Socioeconomic History Marital status: Single Spouse name: Not on file Number of children: Not on file Years of education: Not on file Highest education level: Not on file Occupational History Not on file Social Needs Financial resource strain: Not on file Food insecurity: Worry: Not on file Inability: Not on file Transportation needs: Medical: Not on file Non-medical: Not on file Tobacco Use Smoking status: Never Smoker Smokeless tobacco: Never Used Substance and Sexual Activity Alcohol use: No Alcohol/week: 0.0 standard drinks Drug use: No Sexual activity: Not on file Lifestyle Physical activity: Days per week: Not on file Minutes per session: Not on file Stress: Not on file Relationships Social connections: Talks on phone: Not on file Gets together: Not on file Attends mandaeism service: Not on file Active member of club or organization: Not on file Attends meetings of clubs or organizations: Not on file Relationship status: Not on file Intimate partner violence: Fear of current or ex partner: Not on file Emotionally abused: Not on file Physically abused: Not on file Forced sexual activity: Not on file Other Topics Concern Not on file Social History Narrative Not on file Family History Problem Relation Age of Onset Heart Mother Diabetes Father Heart Father Review of Systems Constitutional: Negative. HENT: Negative. Eyes: Negative. Respiratory: Negative. Breasts: Negative. Cardiovascular: Negative. Gastrointestinal: Negative. Genitourinary: Negative. Musculoskeletal: Negative. Skin: Negative. Neurological: Negative. Psychiatric/Behavioral: Negative. Endocrine: Endocrine negative Vital Signs There were no vitals taken for this visit. Physical Exam Musculoskeletal: General: Well-developed well-nourished oriented to person place and time HEENT normocephalic atraumatic atraumatic pupils equal round reactive to light extraocular muscles intact Cervical thoracic and lumbar spine without focal deficit normal kyphosis and lordosis Chest clear to auscultation and percussion Cardiovascular regular rate and rhythm without gallop rub or murmur soft without organomegaly Normal bowel sounds Neurologic: Focal myotome or dermatomal deficits Vascular: Intact symmetrical bilateral upper and lower extremities Skin without stasis varicosities or breakdown Extremities without cyanosis clubbing or edema Lymphatics no peripheral lymphedema Psych normal mood and affect. Neurovascular function is intact. To include brisk capillary refill warm pink skin active motor function and sensory function intact. Nursing note and vitals reviewed. EXAM: XR PELVIS <3 VW HISTORY: Hip pain - AP Pelvis COMPARISON: None. FINDINGS: Degenerative and postsurgical changes are seen in the lumbar spine. Osteopenia is noted. Pelvic phleboliths are seen. Intramedullary nail traversing a healing intertrochanteric/subtrochanteric femur fracture is seen without hardware complication. Mild bilateral hip joint space narrowing is present with osteophytosis and subchondral sclerosis. IMPRESSION No acute bony abnormality. Mild bilateral hip osteoarthrosis. Assessment/Plan Lumbar radiculopathy Keep scheduled appointment with neurologist. Pain is radiating from her spine. Follow up prn. documented in this encounter Plan of Treatment Health Maintenance Due Date Last Done Comments DTaP,Tdap,and Td Vaccines (1 - Tdap) 10/10/1956 Breast Cancer Screening (MAMMOGRAM) 1983 COLONOSCOPY 10/10/1993 Zoster Recombinant Vaccine (SHINGRIX) (1 of 2) 10/10/1993 Medicare Wellness Visit 10/10/2008 Osteoporosis Screening 10/10/2008 PNEUMOCOCCAL VACCINES 65+ (1 of 2 - PCV13) 10/10/2008 INFLUENZA VACCINE (#1) 2019 Depression Screening 09/14/2020 09/15/2019 documented as of this encounter Results Not on filedocumented in this encounter Visit Diagnoses Diagnosis Lumbar radiculopathy - Primary Thoracic or lumbosacral neuritis or radi culitis, unspecified documented in this encounter Insurance Payer Benefit Plan / Subscriber ID Effective Phone Address T ype Group Dates MEDICARE MEDICARE PART xxxxxxxxxxx 2008-[place]ian[place] [phone] [address] Medicare A & B nt 82 [id number] [place] [id number] [facility] [employer] [facility] [id number] 2015-Pres PPO ent [phone] [id number] (Work) documented as of this encounter
--- OUTSIDE RECORDS SUMMARY | 2019-11-21 08:31 | XMS REPORT | Summary of Care ---
:1945 Author Organization [facility] - Health Address [address] [place] [address] Care Team Providers Name Role Phone Veena Dickinson MD Primary Care Provider Encounter Details Date Type Department Care Team Description 09/15/2019 Orders Only [facility] Doctor Unassigned, No [address] [facility] var Name [address] [place] [phone] [phone] Allergies Active Allergy Reactions Severity Noted Date [...] Date Type Specialty Care Team Description 09/15/2019 Appointment Radiology Kleber Davalos MD [address] [phone] 09/15/2019 Office Visit Orthopedic Surgery Maryam Davalos MD [address] [phone] Health Maintenance Due Date Last Done Comments DTaP,Tdap,and Td Vaccines (1 - Tdap) 10/10/1956 Depression Screening 1957 Breast Cancer Screening (MAMMOGRAM) 1983 COLONOSCOPY 10/10/1993 Zoster Recombinant Vaccine (SHINGRIX) (1 of 2) 10/10/1993 Medicare Wellness Visit 10/10/2008 Osteoporosis Screening 10/10/2008 PNEUMOCOCCAL VACCINES 65+ (1 of 2 - PCV13) 10/10/2008 INFLUENZA VACCINE (Season Ended) 2019 documented as of this encounter Procedures Procedure Name Priority Date/Time Associated Diagnosis Comme nts CONSENT/REFUSAL FOR Routine 09/15/2019 2:19 PM DIAGNOSIS AND TREATMENT CDT ASSIGNMENT OF BENEFITS Routine 09/15/2019 2:19 PM CDT documented in this encounter Results Not on filedocumented in this encounter Insurance Payer Benefit Plan / Subscriber ID Effective Phone Address T ype Group Dates MEDICARE MEDICARE PART xxxxxxxxxxx 2008-[place] [phone] [address] Medicare A & B nt 82 [id number] [place] [id number] [facility] [id number] 2015-Pres PPO ent documented as of this encounter
--- OUTSIDE RECORDS SUMMARY | 2019-11-21 08:31 | XMS REPORT | Summary of Care ---
:1945 Author Organization [facility] Address [address] [place] [address] Care Team Providers Name Role Phone Veena Dickinson MD Primary Care Provider Reason for Visit Reason Comments Hip Pain right 9/10 Knee Pain Auth/Cert Status Reason Specialty Diagnoses / Procedures Referred By Marilou figueroa Referred To Contact Radiology [facility] X-Ray [address] [place] [address] Phone: Fax: Encounter Details Date Type Department Care Team Description 09/15/2019 Office Visit [facility] Kleber Davalos Lumbar radic ulopathy Orthopaedic Surgery- MD Aby (Primary Dx) [place] [id number] [facility] [address] [place] [phone] Allergies Active Allergy Reactions Severity Noted Date [...] file Gets together: Not on file Attends baptist service: Not on file Active member of [...] X Medicare A & B nt 82 [id number] [place] [id number] [facility] [employer] [facility] [id number] 2015-Pres PPO ent [phone] (Work) documented as of this encounter
[2019-11-21] MEDS ORDERED: SCOPOLAMINE HYDROBROMIDE PATCH TD ONE ×2 (08:50→08:52)
[2019-11-21] MEDS ORDERED: NA CHLORIDE 0.9% 1,000 ML ONE (08:52)
[2019-11-21] MEDS ORDERED: NA CHLORIDE 0.9% 500 ML ONE (09:51)
[2019-11-21] MEDS ORDERED: LIDOCAINE 1% W/EPI 1:100,000 MDV 20 ML VIAL ONE (09:51)
[2019-11-21] MEDS ORDERED: EPINEPHRINE/PF 1 MG/ML AMP ONE (09:51)
[2019-11-21] MEDS ORDERED: FENTANYL CITR 100 MCG/2 ML ONE (09:56)
[2019-11-21] MEDS ORDERED: LIDOCAINE 1% MPF 5 ML VIAL ONE (09:56)
[2019-11-21] MEDS ORDERED: propofoL 200 MG/20 ML VIAL IV ONE (09:56)
[2019-11-21] MEDS ORDERED: ROCURONIUM 50 MG/5 ML VIAL IV ONE (09:57)
[2019-11-21] MEDS ORDERED: LIDOCAINE JELLY 2%- 5 ML TUBE ONE (10:11)
[2019-11-21] MEDS: OXYMETAZOLINE HCL 0.05% 15ML NAS ONE ×2 (10:25→11:58)
[2019-11-21] MEDS ORDERED: NS 0.9% VIAL 10 ML ONE (10:31)
[2019-11-21] MEDS ORDERED: EPHEDRINE SULF 50 MG/ML VIAL ONE (10:31)
[2019-11-21] MEDS ORDERED: OXYMETAZOLINE HCL 0.05% 15ML NAS ONE (10:32)
[2019-11-21] MEDS ORDERED: KETOROLAC 30 MG/ML INJ ONE (10:44)
[2019-11-21] MEDS ORDERED: dexAMETHasone 10 MG/ML VIAL ONE (10:44)
[2019-11-21] MEDS ORDERED: ONDANSETRON 4 MG/2 ML VIAL ONE (11:16)
[2019-11-21] MEDS ORDERED: GLYCOPYRROLATE 0.2 MG/ML SYR ONE ×2 (11:16→12:00)
[2019-11-21] MEDS ORDERED: NEOSTIGMINE 1 MG/ML -5 ML ONE (11:56)
[2019-11-21 12:37] VITALS: BP 146/68; O2SAT 100
[2019-11-21] MEDS ORDERED: SUCCINYLCHOLINE 20 MG/ML (10 ML) IV ONE (12:47)
[2019-11-21] MEDS ORDERED: IBUPROFEN 400 MG TAB ONE (13:19)
--- NOTE | 2019-11-21 13:31 | P.BOP ---
Preoperative diagnosis: CRS Postoperative diagnosis: CRS Primary procedure: NE with R frontal, anterior ethmoid and maxillary antrostomy w tissue remov Eye Technician: NONE,NONE Estimated blood loss: 30ml Specimen: right sinus contents, right sinus culture Findings: thick fungal debris in maxillary sinus Anesthesia: General Complications: None Implants: Propel mini to right frontal recess Fluids & blood products: crystalloid Transferred to: Recovery Room Condition: Good
[2019-11-21 14:10] VITALS: TEMP 97.6
--- NOTE | 2019-11-21 22:55 | OP ---
Date of Procedure: 11/21/2019 Surgeon: Orquidea Aguilera MD Preoperative Diagnosis: Right chronic sinusitis involving the maxillary sinus, anterior ethmoid, and frontal sinuses. Postoperative Diagnosis: Right chronic sinusitis involving the maxillary sinus, anterior ethmoid, and frontal sinuses. Procedure: Nasal endoscopy with frontal sinusotomy, anterior ethmoidectomy and maxillary antrostomy with removal of tissue. Indication For Procedure: Ms. Althea Bell presented in April with complaints of chronic sinusitis despite multiple courses of antibiotics by her primary care physician. She had severe facial pain on the right side resulting from the disease. She underwent CT scan that showed complete opacification of the right maxillary sinus with calcifications suggestive of a fungal ball. There was partial opacification of the right ethmoid sinuses including obstruction of the frontal recess. The risks, benefits, and alternatives to the procedure were discussed with the patient and she agreed to proceed. She required preoperative clearance from her contract technical writer. When that was received, she was scheduled for surgery in June, but the elective cases were canceled due to the COVID pandemic. The patient was rescheduled for surgery in August, but developed weakness of the extremities and was found to have spinal stenosis. She was seen by a spine surgeon, who recommended deferral of her sinus procedure in light of her neurologic symptoms and recommended urgent spinal surgery. The patient re-presented to the clinic in October 2019 with severe intolerable facial pain. At that time, she had not been contacted regarding a date for her spinal surgery and due to the severity of her symptoms, she elected to proceed with sinus surgery and was scheduled appropriately. Description Of Procedure: The patient was brought to the operating room. She was placed under general anesthesia via oral endotracheal tube. The head of bed was turned 90 degrees. The patient's nasal hairs were trimmed and the nasal cavity was packed with Afrin-soaked pledgets. The face was draped in usual fashion for nasal surgery. After removal of the pledgets, a 0-degree endoscope was used to perform bilateral nasal endoscopy. The left middle turbinate was scarred to the septum. The cause of this is uncertain. There is a left uapq-[id number]-xkiifbsq septal deviation. The middle turbinate appeared healthy and normal. The middle meatus appeared clear with no evidence of debris or mucus or inflammation. The nasopharynx was unremarkable other than a well-healed adenoidectomy scar. The right side was then examined. The mucosa was significantly edematous. The middle meatus was completely obstructed by this edema along with some granulated and inflamed tissue. There was thick purulence within the middle meatus. The mucosa of the middle turbinate was significantly erythematous and inflamed. A culture swab was used to collect the sample from the middle meatus and sent for microbiology aerobic stains. The middle meatus was then packed with Afrin- soaked pledgets for several minutes to aid in hemostasis and decongestion by vasoconstriction. A maxillary seeker was used to palpate the uncinate, which was then removed using a backbiter and 90-degree Blakesley. With removal of the uncinate, thick purulence and fungal debris were noted to emanate from the sinus indicating it was under significant pressure. A large bore curved suction was used to remove additional debris and purulence from the maxillary sinus. The maxillary antrostomy was then enlarged by removal of inflamed tissue using a 90-degree Blakesley and a microdebrider. The remaining debris within the maxillary sinus had a thick paste like consistency and removal required multiple iterations of forceful irrigation and suctioning. Additional instruments including a 90 degree curette, a frontal seeker, and a frontal Giraffe instrument were used to loosen and remove thick debris from the anterior wall of the maxillary sinus. The visualization using a 30 and 70 degree endoscope was used to ensure complete removal of this debris. Due to the thickness and quantity of this debris, approximately 30 minutes were required to complete the removal. After completion of the maxillary antrostomy, attention was turned to the anterior ethmoids. The mucosa was polypoid, very edematous, and inflamed with a somewhat granulated appearance. A 45 and 90-degree Blakesley were used to enter the anterior ethmoid cells. Multiple cells contained thick purulent appearing debris. Due to lack of CT navigation availability, formal dissection along the skull base was not performed. The cells were opened in order to clear as much of the inflamed mucosa and infection as safely feasible. Attention was then turned to the frontal recess and sinus. The [employer] balloon dilation system was used to probe the frontal recess. The frontal recess was dilated in order to fracture the cells including the agger nasi. The kvgl-yj-adnz small Giraffe forcept, the moylk-dw-jvzu small Giraffe forcept , and the large frontal Giraffe forceps were used to remove bony partitions and edematous tissue from the frontal recess and sinus. Once dissection was completed, the balloon device was used to irrigate the frontal sinus and ensure removal of all purulent debris. The mucosa within the frontal recess was significantly edematous though the area was widely patent. Decision was made to place a PROPEL mini implant within the frontal recess to aid in local drug delivery to decrease swelling during the healing. A XeroGel dissolvable sinus dressing was then placed within the ethmoid cavity and soaked with saline to aid in hemostasis. The nasopharynx and bilateral nasal cavity were then suctioned from all debris and blood and mucus. The patient was then returned to care of Anesthesia for awakening and extubation in the operating room, which proceeded without difficulty. The patient was transported to the recovery room and will be discharged home later today. Discharge instructions including use of saline irrigation beginning tomorrow were given to the patient. Estimated Blood Loss: 30 mL. Implant: Propel mini to right frontal recess, Xerogel dissolvable nasal dressing to right ethmoid SH/MODL Voice ID: [id number] Report ID: [id number]
--- NOTE | 2019-11-25 20:06 | EKG ---
Test Date: 2019-11-21 Test Time: 08:27:13 Trim Line Worker: TG MEASUREMENT RESULTS: Intervals: Rate: 51 GA: 196 QRSD: 146 QT: 512 QTc: 471 Pelican: P: 35 GA: 196 QRS: -41 T: -10 INTERPRETIVE STATEMENTS: Sinus bradycardia Left axis deviation Right bundle branch block Minimal voltage criteria for LVH, may be normal variant Abnormal ECG Compared to ECG 02/11/2016 21:09:47 Right bundle-branch block now present ST (T wave) deviation no longer present Possible ischemia no longer present Electronically Signed On 11-25-19 19:59:57 CDT by Ajay Easton
== END 2019-11-21 13:55 | disposition home or self-care (01) ==
LOC: OR 08:14
PROVIDERS: ATTEND Otolaryngology
PROC: 09BQ8ZX Excision of Right Maxillary Sinus, Via Natural or Artificial Opening Endoscopic, Diagnostic (ICD-10-PCS; 2019-11-21)
PROC: 099S8ZZ Drainage of Right Frontal Sinus, Via Natural or Artificial Opening Endoscopic (ICD-10-PCS; 2019-11-21)
PROC: 0NBF4ZZ Excision of Right Ethmoid Bone, Percutaneous Endoscopic Approach (ICD-10-PCS; principal; 2019-11-21 09:45)
DX: J32.2 Chronic ethmoidal sinusitis (principal); J32.0 Chronic maxillary sinusitis; J32.1 Chronic frontal sinusitis; B48.8 Other specified mycoses; J34.2 Deviated nasal septum; J33.8 Other polyp of sinus; Z20.828 Contact with and (suspected) exposure to other viral communicable diseases; Z01.812 Encounter for preprocedural laboratory examination; Z01.810 Encounter for preprocedural cardiovascular examination; R00.1 Bradycardia, unspecified; I45.10 Unspecified right bundle-branch block; R94.31 Abnormal electrocardiogram [ECG] [EKG]; E11.9 Type 2 diabetes mellitus without complications; I10 Essential (primary) hypertension; Z79.899 Other long term (current) drug therapy
CPT/HCPCS: 31254; 31267; 31276; 93005; 87070; 85025; 36415; 87205; 88312; 82947 ×2; 88305; 88311; 87077 ×2; 87186 ×2; U0002; J2704; J0330; J3010; J1100; J2710; J7040; J7030; J2405; J0171